=== PATIENT | male | born 1985 | race Caucasian/White ===

== ENCOUNTER 2020-06-13 14:37 | Emergency (ER) | payer BC, OTHER ==
--- OUTSIDE RECORDS SUMMARY | 2020-06-13 15:04 | XMS REPORT | Continuity of Care Document ---
:02/04/1950 Author Organization Formerly [facility] t Address [address] [place] [address] Care Team Providers Name Role Phone Moustapha KIM, L Attending Clinician Problems This patient has no known problems. Allergies, Adverse Reactions, Alerts This patient has no known allergies or adverse reactions. Medications This patient has no known medications. Procedures This patient has no known procedures. Encounters Start End Encounter Admission Attending Care Care Encounter Source Date/Time Date/Time Type Type Clinicians Facility Department ID 2019-07-02 2019-11-15 Office ADELSO Gerard [id number] 10:19:22 13:04:36 Visit [facility] [id number] Surgical [id number] Specialti [id number] 198 [place] Results This patient has no known results.
[2020-06-13 16:46] LABS: Absolute Lymphocytes (CBC) 2.1 K/uL (0.7-4.9); Lymphocytes % 26.9 % (15.3-44.8); MPV 9.4 fL (7.6-11.3); Protime INR 0.96
[2020-06-13 17:02] LABS: ALT/SGPT 35 U/L (12-78); AST/SGOT 18 U/L (15-37); Albumin 4.3 g/dL (3.4-5.0); Alkaline Phosphatase 86 U/L (45-117); BUN Blood Urea Nitrogen 16 mg/dL (7-18); Bicarbonate 32 mmol/L (21-32); Bilirubin Direct < 0.1 mg/dL (0-0.2); Bilirubin Total 0.3 mg/dL (0.2-1.0); Glucose Level 96 mg/dL (74-106); Magnesium 2.4 mg/dL (1.8-2.4); NT PRO-BNP 17 pg/mL (<125); Protein, Total 7.8 g/dL (6.4-8.2); Sodium Level 142 mmol/L (136-145); Troponin (Emerg Dept Use Only) < 0.02 ng/mL (0.0-0.045)
--- NOTE | 2020-06-13 17:17 | RAD REPORT ---
EXAM DESCRIPTION: Karol Single View06/13/2020 5:05 pm CLINICAL HISTORY: sob COMPARISON: none FINDINGS: The lungs appear clear of acute infiltrate. The heart is normal size IMPRESSION: No acute abnormalities displayed
--- NOTE | 2020-06-13 18:20 | ER ---
Nurse's Notes [facility] Name: Stew Jimenez Age: 35 yrs Sex: Male : 1985 Arrival Date: 06/13/2020 Time: 14:39 Bed 19 Private MD: Diagnosis: Dizziness and giddiness;Weakness Presentation: 06/13 14:52 Chief complaint: Patient states: "I was at [employer] yesterday and all of a sudden, my ss face got flushed and I lost all energy I had. I made it over to the BP machine and it was 144/88. About an hour ago, I was at [place] [employer] [place] with my father in law and it happened again. I'm also short of breath.". Coronavirus screen: Client denies travel out of the [place] in the last 14 days. Client presents with at least one sign or symptom that may indicate coronavirus-19. Standard/surgical mask placed on the client. Ebola Screen: Patient denies exposure to infectious person. Patient denies travel to an Ebola-affected area in the 21 days before illness onset. Initial Sepsis Screen: Does the patient meet any 2 criteria? No. Patient's initial sepsis screen is negative. Does the patient have a suspected source of infection? No. Patient's initial sepsis screen is negative. Risk Assessment: Do you want to hurt yourself or someone else? Patient reports no desire to harm self or others. Onset of symptoms was June 12, 2020. 14:52 Method Of Arrival: Ambulatory 14:52 Acuity: CECI 3 ss Triage Assessment: 18:35 General: Appears in no apparent distress. Behavior is calm, cooperative, appropriate ll1 for age. Pain: Denies pain. Cardiovascular: Reports lightheadedness, palpitations, syncope. Respiratory: the patient has mild shortness of breath. Respiratory: No deficits noted. Historical: - Allergies: 14:57 PENICILLINS; ss - Home Meds: 14:57 None [Active]; ss - PMHx: 14:57 None; ss - PSHx: 14:57 ankle repair; ss - Immunization history:: Adult Immunizations up to date. - Social history:: Smoking status: Patient denies any tobacco usage or history of. Screenin:31 Abuse screen: Denies threats or abuse. Nutritional screening: No deficits noted. ll1 Tuberculosis screening: No symptoms or risk factors identified. Fall Risk IV access (20 points). Gait- Weak (10 pts.). Total Barth Fall Scale indicates Low Risk Score (25-44 pts). Fall prevention measures have been instituted. Side Rails Up X 2 Frequent Obs/Assesments occuring As available Patient and Family Educated on Fall Prevention Program and strategies. Assessment: 16:30 General: Appears in no apparent distress. Behavior is calm, cooperative, appropriate ll1 for age. Pain: Denies pain. Pain: Pain does not radiate. Pain began 1 day ago. Neuro: Level of Consciousness is awake, alert, obeys commands, Oriented to person, place, time, situation, Appropriate for age [employer] are equal bilaterally Moves all extremities. Full function Gait is steady, Speech is normal, Facial symmetry appears normal, Reports dizziness, a syncopal episode. Cardiovascular: Reports palpitations, shortness of breath, Heart tones S1 S2 Capillary refill < 3 seconds Clubbing of nail beds is absent JVD is absent Patient's skin is warm and dry. Pulses are all present. Rhythm is regular. Respiratory: Airway is patent Trachea midline Respiratory effort is even, unlabored, Respiratory pattern is regular, symmetrical, Breath sounds are clear bilaterally. GI: No deficits noted. 17:30 Reassessment: No changes from previously documented assessment. Patient and/or family ll1 updated on plan of care and expected duration. Pain level reassessed. Patient is alert, oriented x 3, equal unlabored respirations, skin warm/dry/pink. 18:34 Reassessment: Patient appears in no apparent distress at this time. No changes from ll1 previously documented assessment. Patient and/or family updated on plan of care and expected duration. Pain level reassessed. Vital Signs: 14:52 BP 149 / 99; Pulse 86; Resp 20; Temp 98.5(TE); Pulse Ox 100% ; Weight 98.43 kg; Height ss 6 ft. 2 in. (187.96 cm); Pain 0/10; 14:57 BP 142 / 87; Pulse 91; Resp 18; ss 16:31 BP 125 / 77 Supine; Pulse 72; ll1 16:31 BP 127 / 82 Sitting; Pulse 80; ll1 16:31 BP 129 / 98 Standing; Pulse 92; ll1 18:35 BP 120 / 86; Pulse 82; Resp 17; Pulse Ox 99% on R/A; Pain 0/10; ll1 14:52 Body Mass Index 27.86 (98.43 kg, 187.96 cm) ED Course: 14:39 Patient arrived in ED. ag5 14:55 Triage completed. ss 14:57 Arm band placed on right wrist. ss 15:05 Nichol Nieto FNP-C is [facility]. kb 15:05 Art Herbert MD is Attending Physician. kb 15:59 Margarita Francis, RN is Primary Nurse. ll1 16:32 Patient has correct armband on for positive identification. Bed in low position. Call ll1 light in reach. Side rails up X2. nuclear monitoring technician on. Pulse ox on. NIBP on. 16:38 Inserted saline lock: 22 gauge in right antecubital area, using aseptic technique. ll1 Blood collected. 17:06 XRAY Chest (1 view) In Process Unspecified. EDMS 18:34 No provider procedures requiring assistance completed. intact, bleeding controlled, No ll1 redness/swelling at site. Pressure dressing applied. Patient maintains SpO2 saturation greater than 95% on room air. Administered Medications: No medications were administered Outcome: 18:19 Discharge ordered by MD. kb 18:36 Discharged to home ambulatory. ll1 18:36 Condition: stable 18:36 Discharge instructions given to patient, Instructed on discharge instructions, follow up and referral plans. Demonstrated understanding of instructions, follow-up care. 18:36 Patient left the ED. ll1 Signatures: Dispatcher [employer] EDIN Nichol Nieto FNP-C FNP-Ckb Smirch, Shelby, RN RN Luann Kaiser [facility] Margarita Francis, RN RN 1
--- NOTE | 2020-06-13 18:20 | EDPHYS ---
Physician Documentation [facility] Name: Stew Jimenez Age: 35 yrs Sex: Male : 1985 Arrival Date: 06/13/2020 Time: 14:39 Bed 19 Private MD: ED Physician Art Herbert HPI: 06/13 18:00 This 35 yrs old Male presents to ER via Ambulatory with complaints of kb Shortness Of Breath, General Weakness. 18:01 The patient presents with dizziness, generalized weakness, lightheadedness. Onset: The kb symptoms/episode began/occurred yesterday. Context: occurred while the patient was walking. Modifying factors: The symptoms are alleviated by nothing, the symptoms are aggravated by nothing. Associated signs and symptoms: Pertinent positives: near-syncope. Severity of symptoms: At their worst the symptoms were moderate in the emergency department the symptoms have resolved. Patient's baseline: Neuro: alert and fully oriented, Motor: no deficits, Ambulation: walks without assistance, Speech: normal. The patient has not experienced similar symptoms in the past. The patient has not recently seen a physician. Pt reports he was walking at [facility] with his and suddenly felt like he had no energy and became weak. States he sat down and rested and the feeling passed. Today he was at [facility] and when he was walking to the bui he felt weak, lightheaded, and dizzy again. . Historical: - Allergies: 14:57 PENICILLINS; ss - Home Meds: 14:57 None [Active]; ss - PMHx: 14:57 None; ss - PSHx: 14:57 ankle repair; ss - Immunization history:: Adult Immunizations up to date. - Social history:: Smoking status: Patient denies any tobacco usage or history of. ROS: 17:54 Constitutional: Negative for fever, chills, and weight loss, Cardiovascular: Negative kb for chest pain, palpitations, and edema, Respiratory: Negative for shortness of breath, cough, wheezing, and pleuritic chest pain, Abdomen/GI: Negative for abdominal pain, nausea, vomiting, diarrhea, and constipation, Back: Negative for injury and pain, MS/Extremity: Negative for injury and deformity, Skin: Negative for injury, rash, and discoloration. 17:54 Neuro: Positive for dizziness, weakness, lightheaded. Exam: 17:54 Constitutional: This is a well developed, well nourished patient who is awake, alert, kb and in no acute distress. Head/Face: Normocephalic, atraumatic. Chest/axilla: Normal chest wall appearance and motion. Nontender with no deformity. No lesions are appreciated. Cardiovascular: Regular rate and rhythm with a normal S1 and S2. No gallops, murmurs, or rubs. Normal PMI, no JVD. No pulse deficits. Respiratory: Lungs have equal breath sounds bilaterally, clear to auscultation and percussion. No rales, rhonchi or wheezes noted. No increased work of breathing, no retractions or nasal flaring. Abdomen/GI: Soft, non-tender, with normal bowel sounds. No distension or tympany. No guarding or rebound. No evidence of tenderness throughout. Skin: Warm, dry with normal turgor. Normal color with no rashes, no lesions, and no evidence of cellulitis. MS/ Extremity: Pulses equal, no cyanosis. Neurovascular intact. Full, normal range of motion. Neuro: Awake and alert, GCS 15, oriented to person, place, time, and situation. Cranial nerves II-XII grossly intact. Motor strength 5/5 in all extremities. Sensory grossly intact. Cerebellar exam normal. Normal gait. Vital Signs: 14:52 BP 149 / 99; Pulse 86; Resp 20; Temp 98.5(TE); Pulse Ox 100% ; Weight 98.43 kg; Height ss 6 ft. 2 in. (187.96 cm); Pain 0/10; 14:57 BP 142 / 87; Pulse 91; Resp 18; ss 16:31 BP 125 / 77 Supine; Pulse 72; ll1 16:31 BP 127 / 82 Sitting; Pulse 80; ll1 16:31 BP 129 / 98 Standing; Pulse 92; ll1 18:35 BP 120 / 86; Pulse 82; Resp 17; Pulse Ox 99% on R/A; Pain 0/10; ll1 14:52 Body Mass Index 27.86 (98.43 kg, 187.96 cm) ss MDM: 15:57 Patient medically screened. kb 17:55 Data reviewed: vital signs, nurses notes. Data interpreted: Pulse oximetry: on room air kb is 100 %. Interpretation: normal. Counseling: I had a detailed discussion with the patient and/or guardian regarding: the historical points, exam findings, and any diagnostic results supporting the discharge/admit diagnosis, lab results, radiology results, the need for outpatient follow up, a family practitioner, to return to the emergency department if symptoms worsen or persist or if there are any questions or concerns that arise at home. 06/13 16:22 Order name: Basic Metabolic Panel kb 06/13 16:22 Order name: CBC with Diff kb 06/13 16:22 Order name: LFT's kb 06/13 16:22 Order name: Magnesium; Complete Time: 17:13 kb 06/13 16:22 Order name: NT PRO-BNP; Complete Time: 17:13 kb 06/13 16:22 Order name: PT-INR; Complete Time: 17:18 kb 06/13 16:22 Order name: Troponin (emerg Dept Use Only); Complete Time: 17:13 kb 06/13 16:22 Order name: XRAY Chest (1 view); Complete Time: 17:18 kb 06/13 16:22 Order name: EKG; Complete Time: 16:24 kb 06/13 16:22 Order name: Cardiac monitoring; Complete Time: 16:23 kb 06/13 16:22 Order name: EKG - Nurse/Tech; Complete Time: 16:22 kb 06/13 16:23 Order name: Basic Metabolic Panel; Complete Time: 17:13 EDMS 06/13 16:23 Order name: CBC with Automated Diff; Complete Time: 17:18 EDMS 06/13 16:23 Order name: Liver (Hepatic) Function; Complete Time: 17:13 EDMS 06/13 16:22 Order name: IV Saline Lock; Complete Time: 16:27 kb 06/13 16:22 Order name: Labs collected and sent; Complete Time: 16:27 kb 06/13 16:22 Order name: O2 Per Protocol; Complete Time: 16:22 kb 06/13 16:22 Order name: O2 Sat Monitoring; Complete Time: 16:22 kb 06/13 16:22 Order name: Orthostatics; Complete Time: 16:27 kb Administered Medications: No medications were administered Disposition: 18:38 Co-signature as Attending Physician, Art Herbert MD I agree with the assessment and clarke plan of care. Disposition: 06/13/20 18:19 Discharged to Home. Impression: Dizziness and giddiness, Weakness. - Condition is Stable. - Discharge Instructions: Near-Syncope, [id number], Weakness, [id number]. - Medication Reconciliation Form, Thank You Letter, Antibiotic Education, Prescription Opioid Use form. - Follow up: Emergency Department; When: As needed; Reason: Worsening of condition. Follow up: Private Physician; When: 2 - 3 days; Reason: Recheck today's complaints, Continuance of care, Re-evaluation by your physician. Signatures: Dispatcher [employer] EDiNchol Funk, NIKHIL-C ENGROSSER-Art Lyle MD MD cha Smirch, Shelby, RN RN ss Margarita Francis RN RN ll1 Corrections: (The following items were deleted from the chart) 18:36 18:19 06/13/2020 18:19 Discharged to Home. Impression: Dizziness and giddiness; ll1 Weakness. Condition is Stable. Forms are Medication Reconciliation Form, Thank You Letter, Antibiotic Education, Prescription Opioid Use. Follow up: Emergency Department; When: As needed; Reason: Worsening of condition. Follow up: Private Physician; When: 2 - 3 days; Reason: Recheck today's complaints, Continuance of care, Re-evaluation by your physician. kb
[2020-06-13 18:40] VITALS: TEMP 98.5
[2020-06-13 18:49] VITALS: BP 120/86; O2SAT 99
--- NOTE | 2020-06-14 06:10 | EKG ---
Test Date: 2020-06-13 Test Time: 15:57:31 [employer] Mail Processor: JANINE MEASUREMENT RESULTS: Intervals: Rate: 80 NV: 154 QRSD: 90 QT: 378 QTc: 435 [place]: P: 24 NV: 154 QRS: 46 T: 41 INTERPRETIVE STATEMENTS: Normal sinus rhythm Normal ECG No previous ECG available for comparison Electronically Signed On 06-14-20 06:08:56 HULL AND DECK REMOVER by Martin Hooker
== END 2020-06-13 18:36 | disposition home or self-care (01) ==
LOC: ER 14:37
DX: R53.1 Weakness (principal); Z88.0 Allergy status to penicillin
CPT/HCPCS: 36415; 71045; 80048; 80076; 83735; 83880; 84484; 85025; 85610; 93005; 99285